=== PATIENT | female | born 1980 | race American Indian/Alaskan Native ===

== ENCOUNTER 2018-06-16 11:38 | Emergency (ER) | payer SELFPAY ==
[2018-06-16 11:48] VITALS: BP 112/75
--- NOTE | 2018-06-16 11:51 | Emergency Department Report ---
Chief Complaint: Abdominal Pain Stated Complaint: ABD PAIN/PELVIC PAIN Time Seen by Provider: 06/16/18 11:46 - HPI History of Present Illness: This is a 37 y.o. female that presents with abdominal pain. LMP 06/04/2018, A1. History of enodmetriosis. Patient states she have been in pain every since her period started. She can't see [employer] until July. Lower abdominal pain and nausea Denies V/D - ROS Review of Systems: Abdomen: soft, +BS 4 quad, LUQ & LLQ tenderness, rebound tenderness - Exam Vital Signs: Vital Signs 06/16/18 11:47 Temperature 97.9 F Pulse Rate 97 H Respiratory 20 Rate Blood Pressure 112/75 O2 Sat by Pulse 99 Oximetry MSE screening note: Focused history and physical exam performed. Due to findings the following was ordered: Labs & CT of abdomen and pelvis. ACC for further evaluation. ED Disposition for MSE Condition: Stable Instructions: Abdominal Pain (ED)
[2018-06-16 12:24] LABS: Basophils # (Auto) 0.1 K/mm3 (0.0-0.1); Basophils % (Auto) 0.6 % (0.0-1.8); Eosinophils # (Auto) 0.1 K/mm3 (0.0-0.4); Hematocrit 39.2 % (30.3-42.9); Hemoglobin 12.7 gm/dl (10.1-14.3); Lymphocytes # (Auto) 3.5 K/mm3 (1.2-5.4); Lymphocytes % (Auto) 28.2 % (13.4-35.0); Mean Corpuscular HGB Conc 32 % (30-34); Mean Corpuscular Volume 95 fl (79-97); Monocytes # (Auto) 0.6 K/mm3 (0.0-0.8); Monocytes % (Auto) 4.8 % (0.0-7.3); Platelet Count 318 K/mm3 (140-440); Red Blood Count 4.13 M/mm3 (3.65-5.03); Red Cell Distribution Width 13.9 % (13.2-15.2)
[2018-06-16 12:44] LABS: Bilirubin,Urine NEG (Negative); Color,Urine Yellow (Yellow)
[2018-06-16 12:45] LABS: Bacteria,Urine 1+ /HPF (Negative); Blood,Urine NEG (Negative); Mucus,Urine FEW /HPF; Protein,Urine <15 mg/dL mg/dL (Negative)
[2018-06-16 12:45] LABS: Alanine Aminotransferase 13 units/L (7-56); Albumin 4.5 g/dL (3.9-5); BUN/Creatinine Ratio 14; Blood Urea Nitrogen 10 mg/dL (7-17); Calcium 9.1 mg/dL (8.4-10.2); Hemolysis Index 18
--- NOTE | 2018-06-16 12:54 | Cat Scan Report ---
PROCEDURE: CT ABDOMEN PELVIS WO CON CT DOSE LENGTH PRODUCT: 1361.7 mGy-cm. HISTORY: LUQ LLQ tenderness COMPARISONS: None currently available. FINDINGS: Abdomen: 3.9 mm partially imaged solid nodule right lower lobe series 2:1. Liver, gallbladder, stomach, spleen, pancreas, and adrenals are unremarkable. Kidneys: No hydronephrosis. No nephroureteral stones. No aneurysm. No significant atherosclerotic disease. IVC is unremarkable. There is no periaortic or retroperitoneal adenopathy or mass. [id number] stool. No wall thickening or inflammatory changes. Terminal ileum is unremarkable. Appendix is normal. Small bowel loops are unremarkable. No obstructive pattern. No air-fluid levels. No free air. No free fluid. Mesentery is unremarkable. Pelvis: Oval-shaped, low attenuation 1.9 cm lesion in the left adnexa may represent an ovary with ova renetta cyst. Uterus: Lobulated and mildly enlarged. Bladder: Unremarkable. There is no pelvic mass or adenopathy. Inguinal regions are unremarkable. Bones: No suspicious osseous lesions on this limited examination of the skeleton. Metastatic disease better evaluated with bone scan. IMPRESSION: * Possible pulmonary nodule. Further imaging with a CT chest may be helpful if clinically indicated. * Suspect fibroid uterus. * Likely left ovary with ovarian cyst. * No acute bowel findings. This document is electronically signed by Rich Ferguson MD., June 16 2018 12:52:25 PM ET
[2018-06-16] MEDS ORDERED: PERCOCET 5/325 PO ONE (14:10)
--- NOTE | 2018-06-16 14:12 | Emergency Department Report ---
ED Abdominal Pain HPI - General Chief Complaint: Abdominal Pain Stated Complaint: ABD PAIN/PELVIC PAIN Time Seen by Provider: 06/16/18 11:46 Source: patient Mode of arrival: Ambulatory Limitations: No Limitations - History of Present Illness Initial Comments: 38 yo with known endometriosis. Has appointment in July with new obgyn. Has had inc in pain and missed work so she comes to ER. ambulatory. non toxic. taking po. has been using goody's powder for pain. has had endometrial procedures in the past. last saw her obgyn approx 1 year ago. Is having heavy periods per her usual. pain worse on right side. requesting work note. MD Complaint: abdominal pain -: Gradual, year(s) Severity scale (0 -10): 7 Quality: cramping Consistency: intermittent Improves With: nothing Worsens With: nothing Treatments Prior to Arrival: NSAIDs - Related Data Previous Rx's Medication Instructions Recorded Last Taken Type Ibuprofen [Motrin] 800 mg PO Q8HR PRN #20 tablet 06/16/18 Unknown Rx Allergies Allergy/AdvReac Type Severity Reaction Status Date / Time No Known Allergies Allergy Unverified 06/16/18 14:48 ED Review of Systems ROS: Stated complaint: ABD PAIN/PELVIC PAIN Other details as noted in HPI Comment: All other systems reviewed and negative Gastrointestinal: as per HPI Genitourinary: as per HPI ED Past Medical Hx - Past Medical History Previous Medical History?: Yes Additional medical history: endometriosis - Surgical History Past Surgical History?: Yes Additional Surgical History: endometrial surgeries - Family History Family history: no significant - Social History Smoking Status: Current Every Day Smoker Substance Use Type: Alcohol - Medications Home Medications: Home Medications Medication Instructions Recorded Confirmed Last Taken Type Ibuprofen [Motrin] 800 mg PO Q8HR PRN #20 tablet 06/16/18 Unknown Rx ED Physical Exam - General Limitations: No Limitations General appearance: alert - Head Head exam: Present: atraumatic, normocephalic - Eye Eye exam: Present: normal appearance, PERRL - ENT ENT exam: Present: mucous membranes moist - Neck Neck exam: Present: normal inspection - Respiratory Respiratory exam: Present: normal lung sounds bilaterally - Cardiovascular Cardiovascular Exam: Present: regular rate, normal rhythm - GI/Abdominal GI/Abdominal exam: Present: soft, normal bowel sounds. Absent: tenderness - Rectal Rectal exam: Present: deferred - Extremities Exam Extremities exam: Present: normal inspection, full ROM - Back Exam Back exam: Present: normal inspection, full ROM - Neurological Exam Neurological exam: Present: alert, oriented X3 - Skin Skin exam: Present: warm, dry, intact ED Course Vital Signs 06/16/18 06/16/18 06/16/18 11:47 14:20 14:47 Temperature 97.9 F Pulse Rate 97 H Respiratory 20 16 16 Rate Blood Pressure 112/75 O2 Sat by Pulse 99 Oximetry ED Medical Decision Making - Lab Data Result diagrams: 06/16/18 12:03 06/16/18 12:03 - Medical Decision Making Vital Signs 06/16/18 06/16/18 06/16/18 11:47 14:20 14:47 Temperature 97.9 F Pulse Rate 97 H Respiratory 20 16 16 Rate Blood Pressure 112/75 O2 Sat by Pulse 99 Oximetry Labs 06/16/18 06/16/18 06/16/18 12:03 12:03 12:03 WBC 12.5 H RBC 4.13 Hgb 12.7 Hct 39.2 MCV 95 MCH 31 MCHC 32 RDW 13.9 Plt Count 318 Lymph % (Auto) 28.2 [place] % (Auto) 4.8 Eos % (Auto) 1.0 Baso % (Auto) 0.6 Lymph # 3.5 [place] # 0.6 Eos # 0.1 Baso # 0.1 Seg Neutrophils % 65.4 Seg Neutrophils # 8.2 H Sodium 143 Potassium 4.4 Chloride 105.2 Carbon Dioxide 26 Anion Gap 16 BUN 10 Creatinine 0.7 Estimated GFR > 60 BUN/Creatinine Ratio 14 Glucose 96 Calcium 9.1 Total Bilirubin 0.30 AST 20 ALT 13 Alkaline Phosphatase 70 Total Protein 7.6 Albumin 4.5 Albumin/Globulin Ratio 1.5 Lipase 36 HCG, Qual Negative Urine Color Urine Turbidity Urine pH Ur Specific [place] Urine Protein Urine Glucose (UA) Urine Ketones Urine Blood Urine Nitrite Urine Bilirubin Urine Urobilinogen Ur Leukocyte Esterase Urine WBC (Auto) Urine RBC (Auto) U Epithel Cells (Auto) Urine Bacteria (Auto) Urine Mucus 06/16/18 12:15 WBC RBC Hgb Hct MCV MCH MCHC RDW Plt Count Lymph % (Auto) [place] % (Auto) Eos % (Auto) Baso % (Auto) Lymph # [place] # Eos # Baso # Seg Neutrophils % Seg Neutrophils # Sodium Potassium Chloride Carbon Dioxide Anion Gap BUN Creatinine Estimated GFR BUN/Creatinine Ratio Glucose Calcium Total Bilirubin AST ALT Alkaline Phosphatase Total Protein Albumin Albumin/Globulin Ratio Lipase HCG, Qual Urine Color Yellow Urine Turbidity Clear Urine pH 5.0 Ur Specific [place] 1.027 Urine Protein <15 mg/dl Urine Glucose (UA) Neg Urine Ketones Tr Urine Blood Neg Urine Nitrite Neg Urine Bilirubin Neg Urine Urobilinogen 2.0 Ur Leukocyte Esterase Neg Urine WBC (Auto) 1.0 Urine RBC (Auto) 5.0 U Epithel Cells (Auto) 4.0 Urine Bacteria (Auto) 1+ Urine Mucus Few preg neg wbc normal vss no fever abd soft non tender ua noted pt requesting work note dc home with obgyn follow up Critical care attestation.: If time is entered above; I have spent that time in minutes in the direct care of this critically ill patient, excluding procedure time. ED Disposition Clinical Impression: Endometriosis Disposition: DC-01 TO HOME OR SELFCARE Is pt being admited?: No Does the pt Need Aspirin: No Condition: Stable Instructions: Endometriosis (ED) Additional Instructions: DIET TOLERATED MEDS ORDERED TODAY IN ER FOLLOW INSTRUCTIONS ON THE BOTTLE FOLLOW UP PCP WITHIN 48 HOURS TO ENSURE YOU ARE GETTING BETTER ACTIVITY TOLERATED MOTRIN OR TYLENOL FOR PAIN OR FEVER RETURN TO THE ER FOR WORSENING SYMPTOMS NOT RELIEVED BY YOUR MEDICATIONS. Prescriptions: Ibuprofen [Motrin] 800 mg PO Q8HR PRN #20 tablet PRN Reason: Pain , Severe (7-10) Referrals: [facility] [Other] - 3-5 Days Forms: Work/School Release Form(ED) Time of Disposition: 14:10
== END 2018-06-16 14:48 | disposition home or self-care (01) ==
LOC: EDBD → ED 11:38
DX: N80.9 Endometriosis, unspecified (principal); F17.200 Nicotine dependence, unspecified, uncomplicated
CPT/HCPCS: 36415; 74176; 80053; 81001; 83690; 84703; 85025